=== PATIENT | male | born 1955 | race Caucasian/White ===

== ENCOUNTER 2022-01-01 07:19 | Day surgery (SDC) | payer OTHER ==
[2021-12-30 14:44] LABS: BASOPHILS % (AUTO) 0.5 % (0.0-5.0); EOSINOPHILS % (AUTO) 1.3 % (0.0-8.0); HEMATOCRIT 50.1 % (42-54); LYMPHOCYTES % (AUTO) 29.1 % (21.0-51.0); MEAN CORPUSCULAR HEMOGLOBIN 29.3 pg (27.0-33.0); MEAN CORPUSCULAR HGB CONC 32.3 g/dL (32.0-36.0); MEAN CORPUSCULAR VOLUME 90.8 fL (79-99); MONOCYTES % (AUTO) 10.5 % (3.0-13.0); NEUTROPHILS % (AUTO) 58.3 % (40.0-77.0); PLATELET COUNT (AUTO) 214 K/uL (130-400); RED BLOOD CELL COUNT(AUTO) 5.52 MIL/uL (4.50-6.20); RED CELL DISTRIBUTION WIDTH 14.3 % (11.0-15.5); WHITE BLOOD COUNT (AUTO) 6.1 K/uL (4.8-10.8)
[2021-12-30 15:08] LABS: CREATININE 0.9 mg/dL (0.5-1.5); POTASSIUM 4.3 mmol/L (3.5-5.1)
[2021-12-31 08:24] VITALS: BP 137/84
[2022-01-01] VITALS (17 sets, daily range): BP systolic 126–168; BP diastolic 69–97
[~2022-01-01] VITALS: Ht 177.8 cm; Wt 114.4 kg
[2022-01-01] MEDS: CEFTRIAXONE 1G VIAL IVP SCH ×2 (06:00→08:40)
[~2022-01-01 07:19] MED LIST: IRON PO; LACTATED RINGERS 1000ML 1,000 ML IV ONE; MELATONIN PO; TAMS-1 PO; VITAMIN B PO; VITAMIN D PO; ZINC PO
[2022-01-01] MEDS ORDERED: LIDOCAINE PF 100MG/5ML (2%) SYRINGE 5ML ONE (08:22)
[2022-01-01] MEDS ORDERED: DEXAMETHASONE SOD PHOSPHATE 10MG/ML 1ML VIAL ONE (08:22)
[2022-01-01] MEDS ORDERED: SUCCINYLCHOLINE 200MG/10ML SYR ONE (08:22)
[2022-01-01] MEDS ORDERED: MIDAZOLAM HCL 1 MG/ML 2ML VIAL ONE (08:22)
[2022-01-01] MEDS ORDERED: GLYCOPYRROLATE 1 MG/5 ML SYRINGE ONE (08:22)
[2022-01-01] MEDS ORDERED: ROCURONIUM 10MG/1ML SYR 10 MG/ML ML ONE ×2 (08:23→09:12)
[2022-01-01] MEDS ORDERED: NEOSTIGMINE 5MG/5ML SYR IV ONE (08:23)
[2022-01-01] MEDS ORDERED: PROPOFOL 10 MG/ML 20ML VIAL IV ONE (08:23)
[2022-01-01] MEDS ORDERED: FENTANYL CITRATE PF 50 MCG/1 ML 2ML VIAL ONE (08:23)
[2022-01-01] MEDS ORDERED: OPIUM/BELLADONNA ALKALOIDS 1 EACH SUPP.RECT RC ONE (09:27)
[2022-01-01] MEDS ORDERED: SUGAMMADEX SODIUM 200 MG/2 ML VIAL IV ONE (09:51)
[2022-01-01] MEDS ORDERED: ALBUTEROL 0.083% 2.5 MG/3 ML INH IH ONE (09:55)
== END 2022-01-01 11:50 | disposition home or self-care (01) ==
LOC: DAH 07:19
PROVIDERS: ATTEND Urology
DX: N40.1 Benign prostatic hyperplasia with lower urinary tract symptoms (principal); R35.1 Nocturia; R39.14 Feeling of incomplete bladder emptying; R39.12 Poor urinary stream; Z79.899 Other long term (current) drug therapy; Z98.890 Other specified postprocedural states
CPT/HCPCS: 36415; 52648; 80048; 85025; 87635; 93005; 94640; A4215; A4221; A4222; A4223; A4335; A4340; A4354; A4358 ×2; A4600; A4663; A5113; A6260; A6402; C9803; J0330; J0696; J1100; J2001; J2250; J2704; J2710; J3010; J3490; J7120 ×2